=== PATIENT | female | born 1930 | race Caucasian/White ===

== ENCOUNTER 2016-07-05 10:10 | Emergency (ER) | payer OTHER, MEDICARE ==
[~2016-07-05] VITALS: Ht 165.1 cm; Wt 55.3 kg
[~2016-07-05 10:10] MED LIST: AVAPRO150 M1 PO; DOCUSATE SODIU100 MG PO; FAMOTIDINE20 M1 PO; LOPRESSOR50 M1 PO; MACROBID 100 M100 MG PO; NYSTATIN100000 U/2 TOP; PRAVACHOL40 M1 PO; RIVA15T PO; SYNTHROID25 MCG PO; ULTRAM(MONOGRAP50 MG PO; VITAMIN D31000 UNI2 PO; XARELTO20 MG PO
--- NOTE | 2016-07-05 10:19 | ED NEURO DEFICIT/STROKE ---
History of Present Illness General Chief Complaint: Altered Mental Status Stated Complaint: AMS, X 45 MINUTES Source: patient, family, old records Exam Limitations: DIFFICULTY SPEAKING Vital Signs & Intake/Output Vital Signs & Intake/Output Vital Signs Date Time Temp Pulse Resp B/P Pulse O2 O2 Flow FiO2 Ox Delivery Rate 07/05 1159 97.0 65 18 161/77 98 Nasal 2.0L Cannula 07/05 1135 96.8 74 18 161/90 98 Nasal 2.0L Cannula 07/05 1101 96 Room Air 07/05 1055 62 18 156/86 99 Room Air 07/05 1041 97.1 62 18 159/93 95 Nasal 2.0L Cannula 07/05 1031 178/96 07/05 1029 96.1 84 20 210/92 95 Room Air 07/05 1019 88 206/104 Allergies Coded Allergies: latex (RASH 07/03/15) Reconcile Medications Cholecalciferol (Vitamin D3) 1,000 UNIT TABLET 1 TAB PO DAILY SUPPLEMENT ( Reported) Docusate Sodium 100 MG SGL 100 MG PO BID constip[ation Famotidine 20 MG TABLET 1 TAB PO QPM GI (Reported) Irbesartan (Avapro) 150 MG TABLET 1 TAB PO DAILY HEART (Reported) Levothyroxine Sodium (Synthroid) 25 MCG TABLET 1 TAB PO DAILY AC THYROID ( Reported) Metoprolol Tartrate (Lopressor) 50 MG TABLET 0.5 TAB PO BID HEART (Reported) Nitrofurantoin Monohyd/M-Cryst (Macrobid 100 MG Capsule) 100 MG CAPSULE 1 CAP PO BID UTI with food Pravastatin Sodium (Pravachol) 40 MG TABLET 1 TAB PO DAILY CHOLESTEROL ( Reported) Rivaroxaban (Xarelto) 15 MG TABLET 1 TAB PO 1600 AFIB (Reported) Rivaroxaban (Xarelto) 15 MG TAB 15 MG PO 1600 afib Tramadol HCl (Ultram) 50 MG TAB 1 TAB PO Q4P PRN PAIN SCALE 6-10 Triage Nurses Notes Reviewed? yes HPI: Patient was in her usual state of health this morning and then she began to experience a headache. Patient took some Tylenol but a few minutes later she noticed that she was having difficulty speaking. Patient knows what works she wants to get so she is just unable to do so. Patient denies any increased weakness. 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 The headache is diffuse and is constant. Patient rates the headache at 4 out of 10. Patient denies any blurry vision. There is no nausea or vomiting. There are no aggravating or mitigating factors to the headache. Past History Travel History Traveled to [place] past 21 day No Medical History Any Pertinent Medical History? none Neurological: CVA EENT: NONE Cardiovascular: AFIB, hypertension, hyperlipidemia Respiratory: NONE Gastrointestinal: diverticulitis, GERD Hepatic: NONE Renal: NONE Musculoskeletal: NONE Psychiatric: NONE Endocrine: hypothyroidism, BORDERLINE DIABETIC Blood Disorders: NONE Cancer(s): NONE ENTRY LEVEL ACCOUNT MANAGER/Reproductive: NONE History of MRSA: No History of VRE: No History of CDIFF: No Pneumonia Vaccine: 12/31/11 Influenza Vaccine: 01/21/15 Surgical History Surgical History: hysterectomy, COLON RESECTION RIGHT TOTAL HIP Psychosocial History Who do you live with Spouse Services at Home None What is your primary language Estonian Tobacco Use: Never used ETOH Use: denies use Illicit Drug Use: denies illicit drug use Family History Family History, If Any: FATHER ([place], esophageal cancer). Hx Contributory? No Review of Systems Review of Systems Constitutional: Reports: no symptoms. EENTM: Reports: no symptoms. Respiratory: Reports: no symptoms. Cardiovascular: Reports: no symptoms. GI: Reports: no symptoms. Genitourinary: Reports: no symptoms. Musculoskeletal: Reports: no symptoms. Skin: Reports: no symptoms. Neurological/Psychological: Reports: see HPI, headache. Hematologic/Endocrine: Reports: no symptoms. Immunologic/Allergic: Reports: no symptoms. All Other Systems: Reviewed and Negative Physical Exam Physical Exam General Appearance: well developed/nourished, alert, awake, anxious, moderate distress Head: atraumatic, normal appearance Eyes: Bilateral: PERRL, EOMI. Ears, Nose, Throat: normal ENT inspection, moist mucous membrane, hearing grossly normal Neck: normal inspection, supple, full range of motion Respiratory: normal breath sounds, chest non-tender, no respiratory distress, lungs clear Cardiovascular: normal peripheral pulses, irregularly irregular Gastrointestinal: normal bowel sounds, soft, non-tender, no organomegaly Back: normal inspection, normal range of motion Extremities: normal range of motion Psychiatric: awake, alert, oriented x 3 Cranial Nerves: normal hearing, PERRL, abnormal speech Coordination/Gait: ABN nose to finger (R) Motor/Sensory: no motor/sensory deficits Skin: intact, normal color, warm/dry Core Measures CVA/TIA Diagnosis: Yes NIH Stroke Scale: Total 2 Date Last Known Well: 07/05/16 Time Last Known Well: 899 Neurological S/S of CVA: Difficulty Speaking Symptom Start Date: 07/05/16 Symptom Start Time: 09 Reason tPA not ordered+ Medical Contraindication Severe Sepsis Present: No Septic Shock Present: No Progress Differential Diagnosis: electrolyte imbalance, intracranial Hem., migraine LIZARRAGA, stroke, subarachnoid Hem., vertebrobasilar insuff. Plan of Care: Orders Procedure Date/time Status Telemetry/Chain Mender 07/05 1020 Active URINALYSIS 07/05 1020 Complete PARTIAL THROMBOPLASTIN TIME 07/05 1020 Complete PROTHROMBIN TIME 07/05 1020 Complete COMPREHENSIVE METABOLIC PANEL 07/05 1020 Complete CBC WITHOUT DIFFERENTIAL 07/05 1020 Complete EKG 07/05 1020 Active Laboratory Tests 07/05/16 1055: Urine Color YEL, Urine Clarity HAZY H, Urine pH 6.0, Ur Specific [place] 1.025, Urine Protein 100 H, Urine Ketones NEG, Urine Nitrite NEG, Urine Bilirubin NEG, Urine Urobilinogen 0.2, Ur Leukocyte Esterase TRACE H, Ur Microscopic SEDIMENT EXAMINED, Urine RBC RARE, Urine WBC 1-3 H, Ur Epithelial Cells PACKD H, Urine Bacteria MOD H, Urine Mucus RARE, Urine Hemoglobin TRACE-INTACT, Urine Glucose NEG 07/05/16 1039: Anion Gap 13, Estimated GFR > 60, BUN/Creatinine Ratio 28.8 H, Glucose 152 H, Calcium 10.0, Total Bilirubin 1.1, AST 31, ALT 34, Alkaline Phosphatase 79, Total Protein 7.5, Albumin 4.3, Globulin 3.2, Albumin/Globulin Ratio 1.3, PT 15.6 H, INR 1.49 H, APTT 36, CBC w Diff NO MAN DIFF REQ, RBC 4.79, MCV 94.9, MCH 31.5 H, RDW 13.6, MPV 8.7, Gran % 46.5, Lymphocytes % 34.8, Monocytes % 12.8 H, Eosinophils % 5.2 H, Basophils % 0.7, Absolute Granulocytes 4.5, Absolute Lymphocytes 3.4, Absolute Monocytes 1.2 H, Absolute Eosinophils 0.5, Absolute Basophils 0.1, PUBS MCHC 33.2 Diagnostic Imaging: Viewed by Me: CT Scan. Discussed w/RAD: CT Scan. Radiology Impression: PATIENT: ALEC KING PRESENT AGE: 86 PATIENT ACCOUNT NO: [id number] : 32 LOCATION: [facility] ORDERING PHYSICIAN: TU HEDRICK MD SERVICE DATE: 07/05/16 EXAM TYPE: CAT - CT HEAD WO IV CONTRAST EXAMINATION: CT HEAD WITHOUT CONTRAST CLINICAL INFORMATION: Stroke protocol. Difficulty speaking. Patient is on Xarelto. COMPARISON: 03/25/13. TECHNIQUE: Contiguous axial imaging was performed from the skull base to vertex without intravenous administration of contrast. DLP: 529 mGy-cm FINDINGS: There is increased low-attenuation in the left periventricular region consistent with acute infarction. There is no acute intracranial hemorrhage. There is persistent periventricular low-attenuation on the right consistent with chronic microvascular disease. No abnormal mass effect or midline shift is seen. Patricio to white matter differentiation is well preserved. No extra-axial fluid collections are identified. The ventricles are enlarged with prominence of cortical sulci with diffuse atrophy unchanged from previous. The osseous structures and soft tissues are normal. The mastoid air cells and visualized portions of the paranasal sinuses are well aerated. IMPRESSION: 1. No intracranial hemorrhage. 2. Increased low-attenuation in the left periventricular white matter consistent with acute territorial infarction. 3. Other chronic changes as noted. This result was called to Dr. Hedrick at 10:40 AM. DICTATED BY: KIMBER GARG MD DATE/TIME DICTATED:07/05/161035 MACHINE ETCHER:HERMELINDA DATE/TIME TRANSCRIBED:07/05/161035 CONFIDENTIAL, DO NOT COPY WITHOUT APPROPRIATE AUTHORIZATION. <Electronically signed in Other Vendor System> SIGNED BY: KIMBER GARG MD 07/05/16 1108 Initial ED EKG: AFIB, nonspecific ST T wave chg Prior EKG: unchanged Rhythm Strip: atrial fibrillation, atrial flutter Comments: 10:40 PT'S SPEECH IS MUCH IMPROVED and pronator drift resolved. Is close with Dr. Godinez. Patient is already on anticoagulation. Patient is stable for discharge. Departure Departure Disposition: HOME OR SELF CARE Condition: Stable Clinical Impression Primary Impression: TIA (transient ischemic attack) Referrals: MANISHA TYSON MD (PCP/Family) Additional Instructions: Return if symptoms worsen or for any concerns. Departure Forms: Customer Survey General Discharge Information
[2016-07-05 10:50] LABS: ABSOLUTE BASOPHIL COUNT 0.1 /CUMM (0.0-0.2); ABSOLUTE EOSINOPHIL COUNT 0.5 /CUMM (0.0-0.7); ABSOLUTE GRANULOCYTE CT 4.5 /CUMM (1.4-6.5); ABSOLUTE LYMPH COUNT 3.4 /CUMM (1.2-3.4); ABSOLUTE MONOCYTE COUNT 1.2 /CUMM (0.10-0.60); BASOPHIL % 0.7 % (0.0-2.0); EOSINOPHIL % 5.2 % (0-5); GRANULOCYTE % 46.5 % (42.2-75.2); HEMATOCRIT 45.5 % (37-47); MEAN CORPUSCULAR HGB 31.5 PG (27.0-31.0); MEAN CORPUSCULAR HGB CONC 33.2 G/DL (33.0-37.0); MEAN CORPUSCULAR VOLUME 94.9 FL (81.0-99.0); MEAN PLATELET VOLUME 8.7 FL (7.4-10.4); PLATELET COUNT 164 /CUMM (130-400); RBC DISTRIBUTION WIDTH 13.6 % (11.5-14.5); RED BLOOD CELL CT 4.79 /CUMM (4.20-5.40); WHITE BLOOD CELL COUNT 9.6 /CUMM (4.8-10.8)
[2016-07-05 11:01] LABS: PT 15.6 SEC (9.4-12.5); PTT 36 SEC (25-37)
--- NOTE | 2016-07-05 11:08 | CT SCAN REPORT ---
EXAMINATION: CT HEAD WITHOUT CONTRAST CLINICAL INFORMATION: Stroke protocol. Difficulty speaking. Patient is on Xarelto. COMPARISON: 03/25/13. TECHNIQUE: Contiguous axial imaging was performed from the skull base to vertex without intravenous administration of contrast. DLP: 529 mGy-cm FINDINGS: There is increased low-attenuation in the left periventricular region consistent with acute infarction. There is no acute intracranial hemorrhage. There is persistent periventricular low-attenuation on the right consistent with chronic microvascular disease. No abnormal mass effect or midline shift is seen. Patricio to white matter differentiation is well preserved. No extra-axial fluid collections are identified. The ventricles are enlarged with prominence of cortical sulci with diffuse atrophy unchanged from previous. The osseous structures and soft tissues are normal. The mastoid air cells and visualized portions of the paranasal sinuses are well aerated. IMPRESSION: 1. No intracranial hemorrhage. 2. Increased low-attenuation in the left periventricular white matter consistent with acute territorial infarction. 3. Other chronic changes as noted. This result was called to Dr. Lopez at 10:40 AM.
--- NOTE | 2016-07-05 12:00 | RADIOLOGY REPORT ---
EXAMINATION: XR PORTABLE CHEST CLINICAL INFORMATION: Chest pain. COMPARISON: Chest x-ray dated 03/09/2015, 03/07/2015 and 08/24/2008. TECHNIQUE: Portable AP semierect view of the chest was obtained. FINDINGS: The cardiomediastinal silhouette is again found to be enlarged and globular in shape, unchanged dating back to 2008, allowing for differences in technique. Calcification of the aortic arch is seen. Lungs bilaterally are symmetrically expanded. No evidence of pulmonary edema, focal consolidation, effusion or pneumothorax is seen. Bony structures are unremarkable. IMPRESSION: No change in enlarged cardiomediastinal silhouette. No focal acute pulmonary process.
[2016-07-05] MEDS ORDERED: XARELTO15 M2 PO (12:25)
[2016-07-05 12:26] VITALS: BP 186/78
== END 2016-07-05 12:52 ==
LOC: ERH 10:10
PROVIDERS: Emergency Medicine
DX: G45.9 Transient cerebral ischemic attack, unspecified (principal)
CPT/HCPCS: 81001; 93005; 93010